=== PATIENT | female | born 1980 | race Two or more races ===

== ENCOUNTER 2018-07-06 14:40 | Observation (INO) | payer MEDICAID, OTHER ==
[~2018-07-06] VITALS: Ht 160 cm; Wt 63.5 kg
[2018-07-06] MEDS ORDERED: PREN-145 OR (15:33)
[2018-07-06] MEDS: TERBUTALINE SULFATE 1 MG/ML 1ML VIAL SC SCH (15:42)
[2018-07-06 16:15] LABS: Urine Bacteria FEW /hpf (None Seen); Urine Blood 2+ /uL (Negative); Urine Mucus FEW (None Seen); Urine Specific Gravity 1.015 (1.001-1.035); Urine WBC 827 /hpf (0 - 5); Urine WBC Clumps PRESENT /hpf (None Seen)
[2018-07-06 16:33] LABS: Alcohol, Urine < 3.0 mg/dL (0-5); Amphetamine Screen, Urine NEGATIVE (NEGATIVE); Barbiturate Scree,Urine NEGATIVE (NEGATIVE); Benzodiazephine Screen, Urine NEGATIVE (NEGATIVE); Cocaine Screen, Urine NEGATIVE (NEGATIVE); Opiate Scree,Urine NEGATIVE (NEGATIVE); Phencyclidine Screen, Urine NEGATIVE (NEGATIVE)
[2018-07-06 16:35] LABS: Cannabinoid Screen, Urine NEGATIVE (NEGATIVE)
== END 2018-07-06 16:40 | disposition home or self-care (01) | DRG 566 ==
LOC: LDRP 14:40
PROVIDERS: ADMIT Obstetrics & Gynecology; ATTEND Obstetrics & Gynecology
DX: O62.9 Abnormality of forces of labor, unspecified (principal); O09.523 Supervision of elderly multigravida, third trimester; Z3A.30 30 weeks gestation of pregnancy
CPT/HCPCS: 59025; 76815; 76817; 80307; 81001; 81002; 96372; G0378; J3105

== ENCOUNTER 2018-07-08 08:50 | Observation (INO) | payer MEDICAID ==
[~2018-07-08 08:50] MED LIST: PREN-145 OR
[2018-07-08] MEDS ORDERED: NITR-52 PO (09:10)
[2018-07-08] MEDS ORDERED: NIFE30TA66 PO (09:10)
== END 2018-07-08 09:37 | disposition home or self-care (01) | DRG 563 ==
LOC: LDRP 08:50
PROVIDERS: ADMIT Specialist; ATTEND Specialist
DX: O60.03 Preterm labor without delivery, third trimester (principal); Z3A.30 30 weeks gestation of pregnancy
CPT/HCPCS: 59025; 81002; G0378

== ENCOUNTER 2018-07-09 14:23 | Observation (INO) | payer MEDICAID ==
[~2018-07-09 14:23] MED LIST changes: +NIFE30TA66 PO; +NITR-52 PO
== END 2018-07-09 16:10 | disposition home or self-care (01) | DRG 566 ==
LOC: LDRP 14:23
PROVIDERS: ADMIT Obstetrics & Gynecology; ATTEND Obstetrics & Gynecology
DX: O36.8130 Decreased fetal movements, third trimester, not applicable or unspecified (principal); O26.893 Other specified pregnancy related conditions, third trimester; N89.8 Other specified noninflammatory disorders of vagina; O09.523 Supervision of elderly multigravida, third trimester; Z3A.30 30 weeks gestation of pregnancy
CPT/HCPCS: 59025; 76818; 81002; G0378

== ENCOUNTER 2018-07-11 11:25 | Observation (INO) | payer MEDICAID | END 2018-07-11 13:09 | disposition home or self-care (01) | DRG 563 | LOC: LDRP 11:25 | PROVIDERS: ADMIT Specialist; ATTEND Specialist | DX: O60.03 Preterm labor without delivery, third trimester (principal); O26.893 Other specified pregnancy related conditions, third trimester; N89.8 Other specified noninflammatory disorders of vagina; O09.523 Supervision of elderly multigravida, third trimester; Z3A.31 31 weeks gestation of pregnancy | CPT/HCPCS: 59025; 81002; G0378 ==

== ENCOUNTER 2018-07-18 10:05 | Observation (INO) | payer MEDICAID | END 2018-07-18 10:40 | disposition home or self-care (01) | DRG 563 | LOC: LDRP 10:05 | PROVIDERS: ADMIT Specialist; ATTEND Specialist | DX: O60.03 Preterm labor without delivery, third trimester (principal); O09.523 Supervision of elderly multigravida, third trimester; Z3A.32 32 weeks gestation of pregnancy | CPT/HCPCS: 59025; 81002; G0378 ==

== ENCOUNTER 2018-07-25 12:45 | Observation (INO) | payer MEDICAID ==
[~2018-07-25 12:45] MED LIST changes: -NITR-52 PO
== END 2018-07-25 13:36 | disposition home or self-care (01) | DRG 563 ==
LOC: LDRP 12:45
PROVIDERS: ADMIT Specialist; ATTEND Specialist
DX: O60.03 Preterm labor without delivery, third trimester (principal); O09.523 Supervision of elderly multigravida, third trimester; Z3A.33 33 weeks gestation of pregnancy
CPT/HCPCS: 59025; 81002; G0378

== ENCOUNTER 2018-08-08 11:45 | Observation (INO) | payer MEDICAID | END 2018-08-08 12:30 | disposition home or self-care (01) | DRG 566 | LOC: LDRP 11:45 | PROVIDERS: ADMIT Specialist; ATTEND Specialist | DX: O21.2 Late vomiting of pregnancy (principal); O60.03 Preterm labor without delivery, third trimester; O09.523 Supervision of elderly multigravida, third trimester; Z3A.35 35 weeks gestation of pregnancy | CPT/HCPCS: 59025; 81002; G0378 ==

== ENCOUNTER 2018-08-31 02:48 | Inpatient (IN) | payer MEDICAID ==
[2018-08-31] VITALS (12 sets, daily range): BP systolic 99–116; BP diastolic 55–71
[~2018-08-31] VITALS: Ht 152.4 cm; Wt 68.0 kg
[2018-08-31] MEDS ORDERED: LACTATED RINGER'S 1,000 ML IV SCH ×2 (03:44→04:10)
[2018-08-31] MEDS ORDERED: TERBUTALINE SULFATE 1 MG/ML 1ML VIAL SC ONE ×2 (03:45→03:48)
[2018-08-31 04:31] LABS: Basophils # (auto) 0 uL; Basophils % (auto) 0.4 % (0.0-2.0); Eosinophils # (auto) 0.2 uL; Eosinophils % (auto) 2.3 % (0.0-7.0); Hemoglobin 11.9 g/dL (12.2-16.2); Lymphocytes # (auto) 3.5 uL; Lymphocytes % (auto) 39.2 % (10.0-50.0); Mean Corpuscular Hemoglobin 30.8 pg (28.0-32.0); Mean Corpuscular Volume 90.5 fL (80.0-100.0); Monocytes # (auto) 0.5 uL; Monocytes % (auto) 5.4 % (0.0-12.0); Neutrophils # (auto) 4.7 uL; Neutrophils % (auto) 52.7 % (37.0-80.0); Platelet Count (auto) 308 10^3/uL (140-450); Red Blood Cells 3.87 10^6/uL (4.0-5.20); Red Cell Distribution Width 12.9 % (11.8-14.3); White Blood Cell 8.8 10^3/uL (4.4-10.8)
[2018-08-31 04:36] LABS: INR 0.87 (0.9-1.15); Prothrombin Time 9.4 sec (9.27-12.13)
[2018-08-31 04:40] LABS: Albumin 2.8 g/dL (3.4-5.0); BUN/Creatinine Ratio 13.8; Calcium 8.3 mg/dL (8.5-10.1); Potassium 3.6 mmol/L (3.5-5.1)
[2018-08-31 04:43] LABS: Bilirubin, Total 0.3 mg/dL (0.2-1.0); Total Protein 7.1 g/dL (6.4-8.2)
[2018-08-31 05:05] LABS: Urine Bacteria NONE SEEN /hpf (None Seen); Urine Blood Negative /uL (Negative); Urine Mucus FEW (None Seen); Urine Specific Gravity 1.017 (1.001-1.035); Urine WBC 2 /hpf (0 - 5)
[2018-08-31] MEDS: TERBUTALINE SULFATE 1 MG/ML 1ML VIAL SC SCH ×2 (06:30→07:00)
[2018-08-31] MEDS ORDERED: MORPHINE SULF(PF) 0.5MG/ML 10ML VIAL ONE (07:28)
[2018-08-31] MEDS ORDERED: fentaNYL CITRATE 100 MCG/2 ML VL ONE (07:28)
[2018-08-31] MEDS ORDERED: CARBOPROST TROMETHAMINE 250 MCG/1ML VIAL IM ONE (08:13)
[2018-08-31] MEDS ORDERED: ONDANSETRON HCL 4 MG/2 ML VIAL ONE (08:17)
[2018-08-31] MEDS ORDERED: OXYTOCIN 10 UNIT/ML 10ML VIAL ONE (08:27)
[2018-08-31] MEDS ORDERED: ceFAZolin 1GM VL ONE (08:28)
[2018-08-31] MEDS ORDERED: METOCLOPRAMIDE HCL 5MG/ml INJ 2ml VIAL ONE (08:31)
[2018-08-31] MEDS ORDERED: OXYTOCIN 20 UNT in SODIUM CHLORIDE 0.9% 1,000 ML IV SCH (08:32)
[2018-08-31] MEDS: ceFAZolin 1GM/50ML 50 ML IV SCH ×3 (08:45→23:49)
[2018-08-31] MEDS ORDERED: MORPHINE SULFATE 4 MG/ML SYR/VIAL IV PRN (08:45)
[2018-08-31] MEDS ORDERED: ONDANSETRON HCL 4 MG/2 ML VIAL IV PRN (08:45)
[2018-08-31] MEDS ORDERED: OXYTOCIN 10UNIT/ML 1ML VIAL ONE (09:13)
--- NOTE | 2018-08-31 09:24 | NUR ---
POST OP Received patient from PACU via bed to room 8A. Patient A/A/Ox4, abdominal binder and bilateral SCD's are in place, IV fluids placed on pump and infusing per order, incisional site dressing with minimal drainage, which was circled and timed by this RN and Vasquez Catheter to gravity draining clear yellow urine. Incentive Spirometer at bedside and instruction on proper use with return demonstration done by patient.
[2018-08-31] MEDS: LACT. RINGERS/OXYTOCIN 20UNITS 1,000 ML IV SCH ×3 (09:30→15:40)
--- NOTE | 2018-08-31 10:45 | NUR ---
PERICARE Pericare provided for pt. Peripad replaced.
[2018-08-31] MEDS: KETOROLAC TROMETH 30 MG/ML 1ML VIAL IV PRN ×2 (11:09→21:11)
--- NOTE | 2018-08-31 12:30 | NUR ---
DRAINAGE This RN calls regarding leakage on dressing. POC to replace original dressing, and monitor.
--- NOTE | 2018-08-31 12:40 | NUR ---
DRESSING/PERICARE Pericare provided for pt. Peripad and underpad replaced. Abdominal dressing changed. Clean, dry and intact.
--- NOTE | 2018-08-31 19:00 | NUR ---
Dr Eduardo called unit. Updated dr on patient status including but not limited to vitals and urine output. Orders received to ambulate patient tonight after 1999 and to leave in garcia until day shift.
[2018-08-31 19:47] LABS: Basophils # (auto) 0 uL; Basophils % (auto) 0.2 % (0.0-2.0); Eosinophils # (auto) 0 uL; Eosinophils % (auto) 0.3 % (0.0-7.0); Hematocrit 31.4 % (36.0-46.0); Hemoglobin 10.5 g/dL (12.2-16.2); Lymphocytes # (auto) 2.1 uL; Lymphocytes % (auto) 16.5 % (10.0-50.0); Mean Corpuscular Hemoglobin 30.3 pg (28.0-32.0); Mean Corpuscular Hgb Conc. 33.5 g/dL (32.0-36.0); Mean Corpuscular Volume 90.5 fL (80.0-100.0); Monocytes # (auto) 0.9 uL; Monocytes % (auto) 6.9 % (0.0-12.0); Neutrophils # (auto) 9.5 uL; Neutrophils % (auto) 76.1 % (37.0-80.0); Platelet Count (auto) 265 10^3/uL (140-450); Red Blood Cells 3.47 10^6/uL (4.0-5.20); Red Cell Distribution Width 13.3 % (11.8-14.3); White Blood Cell 12.5 10^3/uL (4.4-10.8)
--- NOTE | 2018-08-31 21:45 | NUR ---
patient ambulation When I went into patient room, patient had ambulated herself to the chair at bedside. Family at bedside. I previously informed patient that I would help her ambulate. Patient not in distress. Patient dressing removed, xiomy intact. Linen changed. Applied mesh underwear to patient with linette pad. Patient instructed she can now ambulate self, but if she needed help, to call nurses station. She is aware to be careful with garcia. Patient aware that garcia will be removed in the morning on day shift, per Dr Eduardo orders.
[2018-09-01] MEDS: LACT. RINGERS/OXYTOCIN 20UNITS 1,000 ML IV SCH (00:30)
--- NOTE | 2018-09-01 01:56 | NUR ---
pharmacy Spoke to after hours pharmacy. Informed pharmacist that only 2 out of 3 bags of Ancef have been given but order on emar has been DC'd. Pharmacist verified mixup and verbalized she will be adding a one time dose of ancef for 0800 on 09/01/18 which will count for patient third dose.
[2018-09-01 02:49] VITALS: BP 95/63
[2018-09-01] MEDS ORDERED: HYDROcodone-ACET 5/325MG TAB PO PRN (05:30)
[2018-09-01] MEDS ORDERED: BISACODYL 10 MG RECT SUPP PR PRN (05:30)
[2018-09-01] MEDS: KETOROLAC TROMETH 30 MG/ML 1ML VIAL IV PRN (05:35)
[2018-09-01 06:50] VITALS: BP 105/69
--- NOTE | 2018-09-01 07:20 | NUR ---
Garcia catheter dc'd Order to discontinue garcia catheter. Garcia dc'd with clean technique following deflation of balloon. Patient tolerated well with no complaints of pain. Will continue care.
[2018-09-01 07:30] LABS: Basophils # (auto) 0 uL; Basophils % (auto) 0.2 % (0.0-2.0); Eosinophils # (auto) 0.1 uL; Eosinophils % (auto) 0.6 % (0.0-7.0); Hematocrit 32.5 % (36.0-46.0); Lymphocytes # (auto) 1.3 uL; Lymphocytes % (auto) 13.3 % (10.0-50.0); Mean Corpuscular Hemoglobin 30.7 pg (28.0-32.0); Mean Corpuscular Hgb Conc. 33.9 g/dL (32.0-36.0); Mean Corpuscular Volume 90.5 fL (80.0-100.0); Monocytes # (auto) 0.6 uL; Monocytes % (auto) 6.1 % (0.0-12.0); Neutrophils # (auto) 7.8 uL; Neutrophils % (auto) 79.8 % (37.0-80.0); Platelet Count (auto) 284 10^3/uL (140-450); Red Blood Cells 3.59 10^6/uL (4.0-5.20); Red Cell Distribution Width 13.3 % (11.8-14.3); White Blood Cell 9.8 10^3/uL (4.4-10.8)
[2018-09-01] MEDS ORDERED: ceFAZolin 1GM/50ML 50 ML IV ONE (08:00)
[2018-09-01 08:08] LABS: RPR Non Reactive (Non Reactive)
[2018-09-01] MEDS: HYDROcodone-ACET 5/325MG TAB PO PRN ×2 (08:32→17:33)
[2018-09-01] MEDS: LACTATED RINGER'S 1,000 ML IV SCH ×2 (10:00)
[2018-09-01] MEDS: DOCUSATE SOD 100 MG CAP PO SCH ×2 (10:14→22:03)
[2018-09-01] MEDS: DOCUSATE CALCIUM 240 MG CAP PO SCH (10:14)
[2018-09-01 11:20] VITALS: BP 94/55
[2018-09-01] MEDS: SIMETHICONE 80 MG CHEWABLE TABLET PO SCH ×4 (12:00→22:03)
--- NOTE | 2018-09-01 12:00 | NUR ---
Patient ambulated to bathroom with steady gait with no assistance from RN; Patient able to void without difficulty 600mL. Pt returned to bed independently.
[2018-09-01] MEDS: IBUPROFEN 800 MG TAB PO PRN ×2 (13:12→22:03)
[2018-09-01 14:51] VITALS: BP 119/76
[2018-09-01 19:00] VITALS: BP 109/78
--- NOTE | 2018-09-01 22:50 | NUR ---
Out of bed, ambulating throughout unit
[2018-09-01 23:20] VITALS: BP 111/66
[2018-09-02 02:52] VITALS: BP 109/74
[2018-09-02] MEDS: HYDROcodone-ACET 5/325MG TAB PO PRN ×3 (03:34→19:09)
[2018-09-02] MEDS: SIMETHICONE 80 MG CHEWABLE TABLET PO SCH ×4 (06:36→21:49)
[2018-09-02 07:00] VITALS: BP 124/76
[2018-09-02] MEDS: DOCUSATE CALCIUM 240 MG CAP PO SCH (09:39)
[2018-09-02] MEDS: DOCUSATE SOD 100 MG CAP PO SCH ×2 (09:39→21:49)
[2018-09-02 10:59] VITALS: BP 111/70
[2018-09-02 14:30] VITALS: BP 107/71
[2018-09-02] MEDS: IBUPROFEN 800 MG TAB PO PRN (21:51)
[2018-09-02 23:00] VITALS: BP 119/84
--- NOTE | 2018-09-03 01:00 | NUR ---
C/S Staple Removal: [place] removed by Quoc Capps CNM using sterile technique. Lower abdominal incision approximated, no drainage/redness/inflammation visualized at time of removal. Steri-strips applied. Education provided by Quoc Capps CNM on incisional care. Patient verbalized understanding and willingness to comply to instructions/teaching provided.
[2018-09-03] MEDS: HYDROcodone-ACET 5/325MG TAB PO PRN ×2 (01:05→05:36)
[2018-09-03 03:00] VITALS: BP 111/65
[2018-09-03] MEDS: SIMETHICONE 80 MG CHEWABLE TABLET PO SCH ×2 (05:36→14:57)
[2018-09-03 07:15] VITALS: BP 106/73
[2018-09-03 11:00] VITALS: BP 123/82
--- NOTE | 2018-09-03 12:30 | NUR ---
Discharge: Discharge instructions given as ordered in [place]. Pt encouraged to follow up with DINING ROOM HELPER as instructed. All questions and concerns addressed. Patient verbalized understanding. Medication reconciliation completed and copy given to patient. All required/requested vaccines given and copies of vaccinations given to patient. Patient encouraged to prepare to depart unit.
[2018-09-03] MEDS: DOCUSATE CALCIUM 240 MG CAP PO SCH (14:56)
[2018-09-03] MEDS: DOCUSATE SOD 100 MG CAP PO SCH (14:56)
[2018-09-03] MEDS: IBUPROFEN 800 MG TAB PO PRN (14:58)
[2018-09-03 15:00] VITALS: BP 83/88
--- NOTE | 2018-09-03 17:25 | NUR ---
Discharge: Patient taken to vehicle ambulatory with all personal belongings, accompanied by staff and family member. No distress noted at time of departure, no adverse changes in status since initial assessment.
== END 2018-09-03 17:25 | disposition home or self-care (01) | DRG 540 ==
LOC: LDRP 02:48 → OBSVTOIN 03:15 → LDRP 10:41
PROVIDERS: ADMIT Obstetrics & Gynecology; ATTEND Obstetrics & Gynecology
PROC: 0UL70CZ Occlusion of Bilateral Fallopian Tubes with Extraluminal Device, Open Approach (ICD-10-PCS; 2018-08-31)
PROC: 10D00Z1 Extraction of Products of Conception, Low, Open Approach (ICD-10-PCS; principal; 2018-08-31 07:59)
DX: O34.211 Maternal care for low transverse scar from previous cesarean delivery (principal); Z30.2 Encounter for sterilization; Z37.0 Single live birth; Z3A.38 38 weeks gestation of pregnancy
CPT/HCPCS: 36415; 51702; 59025; 80053; 81001; 81002; 85025; 85610; 85730; 86592; 86850; 86900; 86901; 94762; 96365; 96366; 96372; 96375; G0378; J0690; J1885; J2405; J2590